=== PATIENT | female | born 1975 | race Caucasian/White ===

== ENCOUNTER 2017-06-29 15:56 | Emergency (ER) | payer OTHER, SELFPAY ==
[2017-06-29 15:56] VITALS: BP 125/80; PULSE 79; RESP 17; TEMP 36.8; O2SAT 95; BMI 26.6
--- NOTE | 2017-06-29 16:11 | CT_ITS ---
STUDY: CT ABDOMEN AND PELVIS WITHOUT CONTRAST REASON FOR EXAM: Female, 41 years old. Left flank pain. History of tubal ligation. RADIATION DOSAGE (If Supplied By Facility): CTDIvol = ( 6.76 ) mGy, DLP = ( 322.64 ) mGycm TECHNIQUE: Transaxial images were obtained from the dome of the diaphragm to the symphysis pubis without oral contrast, and without intravenous contrast. Sagittal and coronal images were reconstructed. Individualized dose optimization techniques were used for this CT. COMPARISON: August 06, 2007 FINDINGS: The visualized lung bases are unremarkable. The visualized portions of the heart are within normal limits. Normal liver. Normal gallbladder and extrahepatic biliary system. Normal spleen. Normal pancreas. There is stable prominence of the left adrenal gland. Normal right kidney. Normal left kidney. Normal visualized stomach. Normal small intestine. There is a moderate amount of stool throughout the colon. The appendix is visualized and appears normal. Normal abdominal aorta. Normal inferior vena cava. Normal retroperitoneum. Normal urinary bladder. There are surgical clips within the pelvis left of midline and system with prior tubal ligation. Normal abdominal wall. Normal osseous structures. CT/Abdomen/Pelvis without Cont IMPRESSION: Moderate amount of stool throughout the colon. No hydroureteronephrosis. Electronically Signed: Gabrielle Francis MD at 17:06 EDT Tel , Service support ,
[2017-06-29] MEDS: Morphine 4 MG/ML Syringe IV (16:15)
[2017-06-29] MEDS: Ketorolac 30 MG/ML Syringe IV (16:15)
[2017-06-29] MEDS: Ondansetron 4 MG/2 ML Vial IV (16:16)
--- NOTE | 2017-06-29 16:17 | ED.DCSUM_ITS ---
- ER Visit Summary Date of Service: 06/29/17 Chief Complaint: Abdominal pain History of Present Illness: The patient is a 41 F with severe left pelvic pain that radiates to her left low back. Pain is colicky, started suddenly about 5 hours prior to arrival but was relatively mild, with quick gradual worsening. She has never had this before, but states that the quality is somewhat like the ovarian discomfort that she experiences for the latter half of every menstrual cycle. She is currently on her cycle, it started 2 days ago and is otherwise not unusual. She denies any urinary trouble or hematuria since this pain started. She has been nauseated but is not vomiting. Physical Examination: Vital signs are normal, she is in acute severe painful distress. She is a little agitated due to this but is cooperative. Palpating the area that is painful is nontender and does not worsen her pain. She does not have true CVA tenderness, she points to an area lower in her left back to which the pain radiates. Her abdomen is nondistended. There is no bony pelvic tenderness. There are no rashes. The rest of her exam is unremarkable. Test Results: negative. Urine shows only a couple red blood cells and 0-5 white blood cells, with trace amount of blood, trace leukocyte esterase. The rest of her labs are unremarkable with only a very mild leukocytosis. Emergency Department Course and Treatment: Given that patient was in immense pain that is focal, radiating to the left low back and without any tenderness that worsened her pain, although the differential diagnosis includes ovarian torsion, it also includes a ureteral stone, and ultrasound is not readily available because it is Friday and CT is. Therefore she was sent to CT, and the results returned relatively quickly showing no acute abnormality, after which I immediately discussed with gynecology absorption and adsorption engineer Dr. Arambula. She stated that giving the timing of the patient's presentation and onset of symptoms, if torsion is suspected, awaiting results of an ultrasound would be reasonable prior to further evaluation. Therefore, she was sent for transvaginal ultrasound of the pelvis. This shows no ovarian enlargement or abnormal blood flow, no cysts, no free fluid. There are some nabothian cysts, which the patient states she has been told about in the past, and signs of possible adenomyosis. None of this explains her discomfort. On reevaluation, she is sitting comfortably and states that the pain is gone. She states it went away gradually, just prior to going to ultrasound. Given the normal CT, I do not think she had ureterolithiasis, even if she had just passed a stone. I discussed again with Dr. Arambula, who agrees that she is safe to discharge home and have follow-up. She recommends taking Motrin 600 mg every 6 hours 48 hours before her next cycle. Treatment Plan: Outpatient gynecologic follow-up Disposition: Discharge home Impression: Pelvic pain in female This note was generated with Number 100 dictation software. It may contain incorrect words, spelling, and punctuation that were not noted in review of the chart prior to signing ED Disposition - Plan for ED Patient: Disposition: Home or Assisted Living Chief Complaint: Abd Pain Instructions: ED Pelvic Pain [facility] Referrals: Silverio Chang MD [STAFF PHYSICIAN] - Imelda Mathis MD [STAFF PHYSICIAN] - Additional Instructions: Dr. Arambula recommends Motrin 600 mg every 6 hours starting 48 hours before your next cycle. You are welcome to follow-up with her, or to continue with Dr. Chang.
[2017-06-29 16:33] LABS: Absolute Lymphocyte Count 1.46 X10^3/ul (0.83-4.51); Absolute Neutrophil Count 10.1 X10^3/uL (2.0-7.7); Basophil# 0.03 X10^3/uL; Basophil% 0.2 % (0-1); Eosinophil# 0.09 X10^3/uL; Eosinophils% 0.7 % (0-5); Hematocrit 42.6 % (37-47); Hemoglobin 14.4 g/dl (12.0-15.0); Lymphocyte # 1.46 X10^3/ul (4.0); Lymphocyte % 11.7 % (19-41); Mean Corp Hgb Conc 33.8 g/gl (32-36); Mean Corpuscular Hgb 31.1 pg (27.0-32.0); Mean Platelet Vol. 9.7 fl (6.2-12.0); Monocyte# 0.81 X10^3/uL; Monocyte% 6.5 % (0-10); Neutrophil # 10.13 X10^3/uL (2.7-7.7); Neutrophil % 80.8 % (47-70); Platelet Count 244 K/mm3 (150-450); RBC Distribution Width CV 13.2 % (11.6-14.6); RBC Distribution Width SD 43.5 fl (35.1-43.9); Red Blood Count 4.63 M/mm3 (4.2-5.4); White Blood Count 12.5 K/mm3 (4.4-11.0)
[2017-06-29] MEDS: HYDROmorphone 1 MG/ML Syringe IV (16:35)
[2017-06-29 16:36] LABS: POSITIVE COUNT NO; POSITIVE DIFFERENTIAL NO; POSITIVE MORPHOLOGY NO
[2017-06-29 16:47] LABS: Anion Gap 8 (5-15); BUN 12 mg/dL (7-18); BUN/Creat Ratio 15.3 RATIO (10-20); Calcium,Total 9.4 mg/dL (8.5-10.1); Chloride 109 mmol/L (98-107); Creatinine, Serum 0.78 mg/dL (0.55-1.02); EST Glomerular Filtration Rate 86 mL/min (>60); Est Glom Filt Rate - Afr Amer 105 mL/min (>60); Estimated Creatinine Clearance 82.79 ml/min; Glucose 95 mg/dL (74-106); Potassium 4.3 mmol/L (3.5-5.1); Sodium Level 138 mmol/L (136-145)
[2017-06-29 17:36] LABS: Bacteria 0 SEEN /hpf (None Seen); Mucous, Urine 0 SEEN /hpf (<or=2+); Squamous Epithelial Cells - UA 0 SEEN /hpf (5-10)
[2017-06-29 17:42] LABS: Color, Urine Yellow (Yellow); Glucose, Dipstick Normal (Normal); Ketone-Dipstick 5 mg/dl (Negative); Leukocyte Esterase-Dipstick 25 /ul (Negative); Nitrite-Dipstick Negative (Negative); Occult Blood-Urine 150 /ul (Negative); Protein-Dipstick 30 mg/dl (Negative); Urine Clarity Sl. Cloudy (Clear); Urine Urobilinogen 4 mg/dl (Normal)
[2017-06-29 17:55] LABS: Amorphous Sediment 2+; Calcium Oxalate Crystals Ur RARE /hpf (<or=2+); Red Blood Cells-Urine 5-10 SEEN /hpf (0-5); Urine Bilirubin Dipstick 3 mg/dL (Negative); White Blood Cells 0-5 SEEN /hpf (0-5)
[2017-06-29 17:56] LABS: Uric Acid Crystals Ur 1+ /hpf (<or=1+)
--- NOTE | 2017-06-29 17:57 | US_ITS ---
STUDY: ULTRASOUND TRANSVAGINAL CLINICAL: Female, 41 years old. Pelvic pain. TECHNIQUE: Transvaginal COMPARISON: None. FINDINGS: Normal uterine size measuring 7.8 cm in maximal craniocaudal dimension. The myometrium is heterogenous. There are no myometrial masses. Normal endometrial thickness measuring 6.0 mm and is hyperechoic. There are nabothian cysts present. Normal uterine cervix. Normal right ovary, measuring 2.2 x 1.7 x 1.5 cm. There are multiple follicles without a dominant cyst. Normal left ovary, measuring 2.3 x 2.1 x 1.8 cm. There are multiple follicles without a dominant cyst. There is no free fluid in the pelvis. Polycystic ovary disease: No. US/Transvaginal Non- IMPRESSION: No sonographic evidence of ovarian torsion. Heterogenous myometrium may reflect underlying adenomyosis. Electronically Signed: Gabrielle Francis MD at 19:32 EDT Tel , Service support ,
[2017-06-29] MEDS: proMETHazine 25 MG/ML Syringe 6.25 MG IV (18:03)
[2017-06-29 18:39] VITALS: BP 99/54; PULSE 64; RESP 16; O2SAT 99
[2017-06-29 19:07] LABS: Pregnancy, Serum, hCG Quali. NEGATIVE Negative (0-9 Nonpreg)
[2017-06-29 20:27] VITALS: BP 97/53; PULSE 60; RESP 14; O2SAT 98
== END 2017-06-29 20:29 | disposition home or self-care (01) ==
PROVIDERS: Emergency Provider Emergency Medicine; Family Provider Physician Assistant; PCP Physician Assistant
DX: R10.2 Pelvic and perineal pain (principal); N88.8 Other specified noninflammatory disorders of cervix uteri; R45.1 Restlessness and agitation; R11.0 Nausea; M54.9 Dorsalgia, unspecified; Z79.899 Other long term (current) drug therapy
CPT/HCPCS: 74176; 76830; 80048; 81001; 84703; 85025; 93976; 96374; 96375; 99285; J7030; A4216; J2405

== ENCOUNTER → 2018-06-29 17:09 | Outpatient (CLI) | payer OTHER, SELFPAY ==
[2018-06-29 17:52] LABS: D-Dimer Quantitative (DVT/PE) 0.41 FEU/ug/m (0.27-0.49)
== END ==
PROVIDERS: Family Provider Physician Assistant; PCP Physician Assistant; Referring Provider Family Medicine; Visit Provider Family Medicine
DX: R07.9 Chest pain, unspecified (principal)
CPT/HCPCS: 85379

== ENCOUNTER → 2019-07-28 16:10 | Outpatient (CLI) | payer OTHER, SELFPAY ==
[2019-07-28 16:27] LABS: D-Dimer Quantitative (DVT/PE) 0.31 FEU/ug/m (0.27-0.49)
== END ==
PROVIDERS: PCP Physician Assistant; Referring Provider Family Medicine; Visit Provider Family Medicine
DX: R06.02 Shortness of breath (principal); R00.0 Tachycardia, unspecified
CPT/HCPCS: 85379

== ENCOUNTER 2021-06-24 17:02 | Emergency (ER) | payer BC, MEDICAID, SELFPAY ==
[2021-06-24 17:03] VITALS: BP 134/85; PULSE 83; RESP 18; TEMP 36.1; O2SAT 99; BMI 33.0
--- NOTE | 2021-06-24 17:16 | EKG12_ITS ---
Test Reason : Blood Pressure : / mmHG Vent. Rate : 084 BPM Atrial Rate : 084 BPM P-R Int : 154 ms QRS Dur : 084 ms QT Int : 376 ms P-R-T Axes : 052 063 045 degrees QTc Int : 444 ms Normal sinus rhythm Normal ECG Confirmed by SAVANA MCCANN, RITESH ([id number]), news videotape editor CARLOS MANUEL CANALES ([id number]) on 06/26/2021 10:39:13 AM Referred By: TREVOR Confirmed By:RITESH SAWANT MD
--- NOTE | 2021-06-24 17:17 | EDS_ITS ---
HPI History of Present Illness Chief Complaint: Chest Pain Detail of Chief Complaint: Chest pain that started about an hour ago Informant: patient Onset/Context/Timing Current Severity: 08/07 Narrative Narrative: Patient presents to the emergency department complaint of chest pain that started about an hour ago. Patient states that she was at [employer] eating when the pain started. She had just drank some water when she developed this pain in her left chest that radiated through to her back and down her left arm and went into her neck. states that she was breathing heavy. P atient denied feeling lightheaded or dizzy. She had no nausea or vomiting. She has had similar pain in the past but no etiology was found. This is the most severe its been however. Patient denies recent travel or surgery. She has never had a blood clot in her leg or lung. She has no heart history otherwise. No family history of heart disease. Prior Similar Symptoms: Yes CVD Risk Factors: Positive for Hypercholesterolemia PFSH PFSH Home Medications cholecalciferol (vitamin D3) [Vitamin D3] 2,000 unit PO DAILY 03/17/13 [History Last Taken 01/25/17] diclofenac sodium 75 mg PO DAILY 06/29/17 [History Last Taken Unknown] Allergy/AdvReac Type Severity Reaction Status Date / Time Gadolinium-MRI Contrast Allergy Unknown Verified 06/24/21 17:05 Medium Social History Smoking Status: Former smoker ROS ROS ED Review of Systems ROS Unobtainable: other Constitutional Constitutional ED: Reports lethargy; Denies chills, fever(s), sweats or weight loss Eyes Eyes: Denies blurry vision, change in vision or diplopia ENT ENT ED: Denies rhinorrhea or sore throat Cardiovascular Cardiovascular: Reports chest pain; Denies orthopnea Respiratory/Chest Respiratory/Chest: Reports dyspnea and dyspnea on exertion; Denies cough, orthopnea or sputum Gastrointestinal Gastrointestinal: Denies abdominal pain, diarrhea, nausea or vomiting Genitourinary Genitourinary ED: Denies dysuria, hematuria or urinary frequency Musculoskeletal Musculoskeletal: Denies arthralgias, back pain, myalgias or neck pain Integumentary Denies abscess, Abrasions or rash Neurologic Neurologic: Denies headache(s) or weakness Psychiatric Psychiatric: Denies anxiety, depression or suicidal thoughts Endocrine Endocrinology: Denies polydipsia, polyphagia or polyuria Hematologic/Lymphatic Hematologic/Lymphatic: Denies easy bleeding, easy bruising or lymphadenopathy Allergic/Immunologic Allergic/Immunologic ED: Denies mouth swelling, tongue swelling or urticaria EXAM Physical Exam Const Vital Signs: 06/24/21 17:03 06/24/21 17:22 06/24/21 18:02 Temperature 97.0 F L Temperature Source Temporal Pulse Rate 83 72 Respiratory Rate 18 15 Blood Pressure 134/85 H 112/68 Blood Pressure Mean 101 82 Pulse Ox 99 99 97 Oxygen Delivery Method Room Air Room Air Room Air 06/24/21 19:00 Temperature Temperature Source Pulse Rate 74 Respiratory Rate 15 Blood Pressure 120/60 Blood Pressure Mean 80 Pulse Ox 99 Oxygen Delivery Method Positive well nourished and well developed General Appearance ED: well developed and NAD HEENT Reports TM's clear and moist mucous membranes normocephalic and atraumatic; Negative for trauma or tenderness Tympanic Membrane ED: Yes TM's clear Eyes PERRL and EOMs intact bilaterally General Eye ED: Negative for pale conjunctiva or scleral icterus Neck no lymphadenopathy, supple and no JVD General: Negative for tenderness Chest Wall inspection of chest normal and palpation of chest normal Chest: Negative for tenderness Resp normal respiratory effort and clear to auscultation bilaterally Effort and Inspection: Negative for respiratory distress or pain with movement Auscultation: Negative for rhonchi, wheezes or diminished lung sounds Cardio regular rate, regular rhythm, S1 normal heart sound, S2 normal heart sound and no murmurs Peripheral Pulses: pulses 2+ throughout GI normal to inspection, nondistended, normoactive bowel sounds, soft to palpation, non-tender, non-distended and no masses Back/Spine no CVA tenderness and no thoracic nor lumbar tenderness Extremity normal to inspection General Extremety ED: Negative for edema General Extremity: Negative for edema Neuro oriented x3, CN's II-XII intact bilaterally, no sensory deficits noted and gait normal Sensorium / Orientation: awake, alert, oriented to person, oriented to place and oriented to time Motor Exam: strength 5/5 throughout and strength abnormal Psych mental status grossly normal Skin no rashes or lesions noted and no wounds Heart Score History: Moderately Suspicious ECG: Normal Age: </= 45 years Risk Factors: 1 or 2 Risk Factors Troponin: </= Normal Limit Score: 2 MDM MDM MDM Narrative Medical decision making narrative: IV line established on arrival. Patient was given aspirin. She refused nitroglycerin. Patient had a normal initial tro ponin as well as chemistries. Given that she had only had a pain for an hour prior to come in and I did repeat a delta troponin which also was negative. Her pain is now mostly resolved. At this point I feel she is low risk with a heart score of 2. Suspect possibly esophageal spasm. Patient advised to follow-up with her primary care physician 3 to 5 days. Patient to return if worsening pain, increasing shortness of breath, or condition worsen anyway. Lab Data Attestation: I reviewed the patient's lab results. Labs: Laboratory Results - last 24 hr 06/24/21 06/24/21 06/24/21 17:20 17:20 19:20 WBC 7.6 RBC 4.32 Hgb 13.2 Hct 38.7 MCV 89.6 MCH 30.6 MCHC 34.1 RDW Std Deviation 42.1 RDW Coeff of Aman 12.9 Plt Count 205 MPV 8.7 Immature Gran % (Auto) 0.300 Neut % (Auto) 67.2 Lymph % (Auto) 23.7 [place] % (Auto) 7.1 Eos % (Auto) 1.2 Baso % (Auto) 0.5 Absolute Neuts (auto) 5.1 Absolute Lymphs (auto) 1.81 Nucleated RBC % 0 Sodium 138 Potassium 3.5 Chloride 106 Carbon Dioxide 26.0 Anion Gap 6 BUN 18 Creatinine 0.78 Estim Creat Clear Calc 79.48 Est GFR (MDRD) Af Amer 103 Est GFR (MDRD) Non-Af 85 BUN/Creatinine Ratio 23.2 H Glucose 117 H Calcium 9.3 Troponin I High Sens < 3 L < 3 L Radiography Chest X-Ray - ED: 1 View Diagnostic Testing: Clinical Impression(s) from Imaging Studies Chest X-Ray 06/24/21 17:30 IMPRESSION: Normal x-ray examination of the chest. Electronically Signed: Maryann Pham MD at 20:08 EDT Reading Location ID and State: [id number] / Tel , Service support , 1 view chest ray obtained interpreted by myself as no acute disease process. Radiology in agreement. EKG Initial EKG: Attestation: I personally reviewed and interpreted this EKG as follows: Comments: Sinus rhythm with a ventricular rate of 84 bpm with no acute ST segment changes Discharge Plan Triage Chief Complaint: Chest Pain ED Provider: Parish De La Rosa Dx/Rx/DC Orders Clinical Impression: Chest pain Instructions: ED Chest Pain, Uncertain Cause Prescriptions: No Action cholecalciferol (vitamin D3) [Vitamin D3] 2,000 UNIT capsule 2,000 unit PO DAILY RF: 0 diclofenac sodium 75 MG tablet 75 mg PO DAILY RF: 0 Primary Care Provider: Derrick Perez Referrals: Derrick Perez MD [Primary Care Provider] - 3-5 Days Disposition Disposition: Home, Self Care
[2021-06-24 17:22] VITALS: O2SAT 99
[2021-06-24 17:28] LABS: Absolute Lymphocyte Count 1.81 X10^3/uL (0.83-4.51); Absolute Neutrophil Count 5.1 X10^3/uL (2.0-7.7); Basophil# 0.04 X10^3/uL; Basophil% 0.5 % (0-1); Eosinophil# 0.09 X10^3/uL; Eosinophils% 1.2 % (0-5); Hematocrit 38.7 % (37-47); Hemoglobin 13.2 g/dL (12.0-15.0); Lymphocyte # 1.81 X10^3/ul (0.83-4.51); Lymphocyte % 23.7 % (19-41); Mean Corp Hgb Conc 34.1 g/dL (32-36); Mean Corpuscular Hgb 30.6 pg (27.0-32.0); Mean Corpuscular Volume 89.6 fL (81-99); Mean Platelet Vol. 8.7 fl (6.2-12.0); Monocyte# 0.54 X10^3/uL; Monocyte% 7.1 % (0-10); NRBC Flagged by Analyzer 0 % (0-5); Neutrophil # 5.13 X10^3/uL (2.7-7.7); Neutrophil % 67.2 % (47-70); Platelet Count 205 K/mm3 (150-450); RBC Distribution Width CV 12.9 % (11.6-14.6); RBC Distribution Width SD 42.1 fl (35.1-43.9); Red Blood Count 4.32 M/mm3 (4.2-5.4); White Blood Count 7.6 K/mm3 (4.4-11.0)
[2021-06-24] MEDS: 0.9% Normal Saline 1,000 ML 150 ML IV (17:30)
[2021-06-24] MEDS: Aspirin 81 MG TAB.CHEW 324 MG PO (17:30)
--- NOTE | 2021-06-24 17:30 | RAD_ITS ---
STUDY: X-RAY CHEST REASON FOR EXAM: Female, 45 years old. chest pain TECHNIQUE: Single AP portable view of the chest. COMPARISON: 01/22/2015. FINDINGS: The lungs are clear and expanded. There is no demonstrated pleural abnormality. Normal size heart. Normal mediastinum and bob. Normal visualized pulmonary arteries. Normal visualized aortic arch and descending thoracic aorta. Normal visualized thoracic spine. Normal visualized ribs, clavicles, and shoulders. There is no demonstrated abnormality of the visualized soft tissue structures of the upper abdomen. RAD/Chest 1 View (Portable) IMPRESSION: Normal x-ray examination of the chest. Electronically Signed: Maryann Pham MD at 20:08 EDT Reading Location ID and State: [id number] / Tel , Service support ,
--- NOTE | 2021-06-24 17:32 | ED.RN ---
Pt refusing nitro at this time d/t hx of migraines. Dr. De La Rosa aware.
[2021-06-24 17:45] LABS: Anion Gap 6 (5-15); BUN 18 mg/dL (7-18); BUN/Creat Ratio 23.2 RATIO (10-20); Calcium,Total 9.3 mg/dL (8.5-10.1); Chloride 106 mmol/L (98-107); Creatinine, Serum 0.78 mg/dL (0.55-1.02); EST Glomerular Filtration Rate 85 mL/min (>60); Est Glom Filt Rate - Afr Amer 103 mL/min (>60); Estimated Creatinine Clearance 79.48 ml/min; Glucose 117 mg/dL (74-106); Potassium 3.5 mmol/L (3.5-5.1); Sodium Level 138 mmol/L (136-145); Troponin-I HS < 3 pg/mL (3.0-54.0)
[2021-06-24 18:02] VITALS: BP 112/68; PULSE 72; RESP 15; O2SAT 97
[2021-06-24 19:00] VITALS: BP 120/60; PULSE 74; RESP 15; O2SAT 99
[2021-06-24 20:43] LABS: Troponin-I HS < 3 pg/mL (3.0-54.0)
[2021-06-24 21:00] VITALS: BP 127/79; PULSE 63; PULSE 68; RESP 16; O2SAT 98
== END 2021-06-24 21:03 | disposition home or self-care (01) ==
PROVIDERS: Emergency Provider Emergency Medicine; PCP Family Medicine; Visit Provider Emergency Medicine
DX: R07.9 Chest pain, unspecified (principal); E78.00 Pure hypercholesterolemia, unspecified; Z79.899 Other long term (current) drug therapy; Z87.891 Personal history of nicotine dependence
CPT/HCPCS: 71045; 80048; 84484; 85025; 93005; 96360; 96361; 99285; J7030; A4216

== ENCOUNTER 2021-09-01 21:12 | Emergency (ER) | payer BC, MEDICAID, SELFPAY ==
[2021-09-01 21:13] VITALS: BP 152/42; PULSE 104; RESP 15; TEMP 37.2; O2SAT 96; BMI 31.9
[2021-09-01] MEDS: HYDROmorphone 1 MG/ML Syringe IM (21:39)
[2021-09-01] MEDS: diazePAM 5 MG Tablet PO (21:39)
--- NOTE | 2021-09-01 21:40 | EDS_ITS ---
HPI History of Present Illness Chief Complaint: Lower Extremity Injury Narrative Narrative: Patient presents with right calf pain after running, she tells me she heard a snap. She has quite a bit of calf pain. No fall no other injury. [facility] Medical History no medical history Home Medications tizanidine 4 mg PO TID #14 tab 09/01/21 [Rx Last Taken Unknown] Allergy/AdvReac Type Severity Reaction Status Date / Time Gadolinium-MRI Contrast Allergy Unknown Verified 09/01/21 21:17 Medium Social History Smoking Status: Former smoker ROS ROS ED ROS Narrative Physical exam General: Patient does not appear in significant distress . Head: Normocephalic, Atraumatic Neck: No C-spine tenderness Cardiovascular: Normal distal pulses Back: Nontender, Normal Inspection. Extremities: Calf pain as in HPI Skin: No abrasions, no lacerations Neurological: Normal strength and sensation EXAM Physical Exam Narrative Exam Narrative: Physical exam General: Patient appears uncomfortable Head: Normocephalic, Atraumatic Neck: No C-spine tenderness Cardiovascular: Normal distal pulses Back: Nontender, Normal Inspection. Extremities: There is tenderness in the right calf region. I can see the Achilles tendon and it is intact. Barlow test is also negative. Otherwise she has normal strength and sensation although slightly limited by pain. No bony tenderness. No knee or ankle pain. Skin: No abrasions, no lacerations Neurological: Normal strength and sensation Const Vital Signs: 09/01/21 21:13 Temperature 98.9 F Temperature Source Temporal Pulse Rate 104 H Respiratory Rate 15 Blood Pressure 152/42 H Blood Pressure Mean 78 Pulse Ox 96 Oxygen Delivery Method Room Air MDM MDM MDM Narrative Medical decision making narrative: At this time there is no evidence of Achilles tendon rupture. She has a calf strain. I will give her analgesia and discharged in stable condition Discharge Plan Triage Chief Complaint: Lower Extremity Injury ED Provider: Siddhartha Laboy Dx/Rx/DC Orders Clinical Impression: Strain of calf muscle, Calf pain Instructions: Gastrocnemius Muscle Tear, ED Muscle Strain, Extremity Prescriptions: New tizanidine 4 mg tablet 4 mg PO TID Qty: 14 RF: 0 Primary Care Provider: Derrick Perez Referrals: Ebenezer Keating DO [STAFF PHYSICIAN] - 2 Days Derrick Perez MD [Primary Care Provider] - Disposition Disposition: Home, Self Care
== END 2021-09-01 23:05 | disposition home or self-care (01) ==
PROVIDERS: Emergency Provider Emergency Medicine; PCP Family Medicine; Visit Provider Emergency Medicine
DX: S86.119A Strain of other muscle(s) and tendon(s) of posterior muscle group at lower leg level, unspecified leg, initial encounter (principal); M79.661 Pain in right lower leg; X58.XXXA Exposure to other specified factors, initial encounter; Y93.02 Activity, running; Z87.891 Personal history of nicotine dependence
CPT/HCPCS: 96372; 99282

== ENCOUNTER 2022-04-11 08:52 | Day surgery (SDC) | payer BC, SELFPAY ==
--- NOTE | 2022-04-09 16:51 | PCM.HP.BLA ---
History and Physical Date of Admission: 04/11/22 Pre-Op History and Physical ? HPI: The patient is a 46 year old female presenting for discussion regarding surgical intervention for abnormal uterine bleeding and endometrial polyp. Patient would like to proceed with surgical intervention at this time. Patient understands that if abnormal endometrial cells are found at the time of the procedure and the ablation is performed that she may need a hysterectomy at a later date. She is declining endometrial biopsy in the office at this time. ? Pre-operative visit. She is scheduled for Hysteroscopy D&C and polypectomy with symphion and laisha endometrial ablation, for AUB, endometrial polyp on 04/11/22. Procedure discussed along with risks, benefits and complications. Other alternatives discussed for management. Consent form signed? Yes. ? ? PAST MEDICAL HISTORY PAST MEDICAL HISTORY Diagnosis Date ? Agoraphobia with panic disorder ? ? Anxiety disorder ? ? Arthritis ? ? Chronic depressive personality disorder ? ? Fibroadenosis of breast ? ? Hiatal hernia ? ? History of cold sores ? ? Hyperlipidemia ? ? borderline ? Neurological signs 01/2013 ? was in hospital for possible stroke or neurolical headache- never confirmed which ? Tobacco use disorder ? ? ? PAST SURGICAL HISTORY PAST SURGICAL HISTORY Procedure Laterality Date ? ABDOMINAL SURGERY HX ? ? ? ARTHROSCOPY, SHOULDER, SURGI ? 2018, 2019 ? DELIVERY ONLY ? ? ? , low cervical ? COLONOSCOPY FLX DX W/COLLJ SPEC WHEN PFRMD ? 09/22/2020 ? ESOPHAGOGASTRODUODENOSCOPY TRANSORAL DIAGNOSTIC ? 09/22/2020 ? LIG/TRNSXJ FLP TUBE ABDL/VAG APPR UNI/BI ? 2003 ? Tubal ligation ? TOOTH EXTRACTION ? 2002 ? ? ? CURRENT MEDICATIONS Current Outpatient Medications Medication Sig Dispense Refill ? norethindrone (AYGESTIN) 5 mg tablet Take 1 tablet TID until bleeding stops, the BID x 3 days, the daily x 3 days. 35 tablet 0 ? loratadine 10 mg cap Take 10 mg by mouth once daily. ? ? ? Magnesium 250 mg tab Take 500 mg by mouth once daily. ? ? ? Cholecalciferol, Vitamin D3, 25 mcg (1,000 unit) cap Take 2 capsules by mouth once daily. 60 capsule 5 ? MULTIVITAMIN (VITAMIN DAILY ORAL) Take 1 tablet by mouth once daily. ? ? ? ascorbic acid (VITAMIN C) 250 mg tablet Take 250 mg by mouth once daily. ? ? ? No current facility-administered medications for this visit. ? ? ALLERGIES: Bee Venom Protein (Honey Bee), Control [Other], Contrast Dye [Iodine], Effexor [Venlafaxine Analogues], Lexapro [Escitalopram Oxalate], Nut - Unspecified, Seasonal Allergies, Tree Nuts, and Zoloft [Sertraline] ? PERSONAL HISTORY: SOCIAL HISTORY Social History ? Tobacco Use ? Smoking status: Former ? ? Packs/day: 0.50 ? ? Years: 24.00 ? ? Pack years: 12.00 ? ? Types: Cigarettes ? ? Quit date: 04/09/2020 ? ? Years since quittin.9 ? Smokeless tobacco: Never ? Tobacco comments: ? ? started smoking at 11yo Vaping Use ? Vaping Use: Never used Substance Use Topics ? Alcohol use: Yes ? ? Comment: very rarely ? Drug use: No ? FAMILY HISTORY: FAMILY HISTORY FAMILY HISTORY Problem Relation Age of Onset ? other (autoimmune) Mother ? ? other (meningioma) Mother ? ? other (mvp) Mother ? ? other (endometriosis) Mother ? ? other (brain tumor) Mother ? ? Seizures Sister ? ? twin ? ? REVIEW OF SYMPTOMS: negative except as noted above PHYSICAL EXAMINATION: ? VITALS: Blood pressure 120/78, weight 194 lb (88 kg), last menstrual period 03/24/2022. ? GENERAL: The patient is well nourished, well hydrated in no acute distress. , The patient is oriented to time, place, and person. NECK: full range of motion ? ? IMPRESSION: AUB, endometrial polyp on ultrasound ? PLAN: Hysteroscopy, dilation and curettage, polypectomy with symphion and Laisha endometrial ablation ? Pt has been counseled on risks/benefits and alternatives of surgery including but not limited to anesthesia, bleeding, infection, uterine perforation with subsequent injury to pelvic structures including bowel, bladder, ureters and vessels. Pt wishes to proceed with surgery at this time. Reviewed possible thermogenic injury to bladder/bowel. ? Pre and post op instructions reviewed ? I have reviewed and updated past medical and surgical history, medications and allergies Imelda Arambula MD ?4:54 PM Office Visit on 03/27/2022 Office Visit on 03/27/2022 Note viewed by patient
[2022-04-11] VITALS (10 sets, daily range): BP systolic 79–130; BP diastolic 43–88; PULSE 68–79; RESP 16–18; TEMP 36.3–36.6; O2SAT 98–100; BMI 33.3
--- NOTE | 2022-04-11 | EMB_PTH ---
PATIENT: LULU SHAH [place] [facility] [place][id number] AGE/SX: 46/F ROOM: RE04/11/[address]: Dr. Imelda Mathis, MDDOB: 1975 BED: DIS: 04/11/2022 SPEC #: [id number] RECD: 04/11/22 12:33 STATUS: FREDERICK RETeena #: [id number] FANNY: 04/11/22 00:[address]: Imelda Mathis DEPT: SURGICAL PATHOLOGY RECD BY: Shane You ENTERED: 04/11/22 12:33 SP TYPE: ENDOM BX/C OTHR DR: Dr. Derrick Perez MD Tissues: Endometrium, NOS Procedures: Surgery Specimen Level IV HEADER OPERATION: Hysteroscopy, D & C Symphion, polypectomy, endometrial ablation PRE-OP DIAGNOSIS: Abnormal uterine bleeding, endometrial polyp TISSUE SUBMITTED: Endometrial polyp and endometrial curettings MICROSCOPIC DIAGNOSIS Endometrial polyp and curettings: Secretory endometrium. SJ:delfino 04/12/2022 MICROSCOPIC DESCRIPTION Slides are reviewed. GROSS DESCRIPTION Received in fixative is one container labeled with the patient's name and designated endometrial polyp and curettings. The specimen consists of multiple irregular fragments of pink-quintero soft tissue that in aggregate measure 5 x 4 x 0.2 cm. The specimen is totally submitted in two cassettes. / AM:delfino 04/11/2022 TC:4 CPT: 69280
[2022-04-11 09:19] LABS: Internal QC Validated? YES +Cl - CLEAR BKGD; Pregnancy, Urine Negative Negative
[2022-04-11 09:32] LABS: Hematocrit 38.3 % (37-47); Hemoglobin 12.7 g/dL (12.0-15.0); Mean Corp Hgb Conc 33.2 g/dL (32-36); Mean Corpuscular Hgb 29.9 pg (27.0-32.0); Mean Corpuscular Volume 90.1 fL (81-99); Mean Platelet Vol. 8.8 fl (6.2-12.0); Platelet Count 227 K/mm3 (150-450); RBC Distribution Width CV 13.2 % (11.6-14.6); RBC Distribution Width SD 43.1 fl (35.1-43.9); Red Blood Count 4.25 M/mm3 (4.2-5.4); White Blood Count 6.8 K/mm3 (4.4-11.0)
[2022-04-11] MEDS: Lactated Ringers 1,000 ML 15 ML IV (09:32)
--- NOTE | 2022-04-11 10:29 | PCM.OPRPT ---
Report of Operation Date of Procedure: 04/11/22 Pre-Operative Diagnosis: AUB, endometrial polyp Post-Operative Diagnosis: same Surgery/Procedure Performed:: Hysteroscopy, D&C, Polypectomy with symphion, Endometrial Ablation with Laisha Description of Surgical Findings:: uterus sounded to 10cm, endocervical canal 4cm. Endometrial polyp noted on anterior aspect of uterus. Surgeon: Franki-Ralf,Imelda physical science technician: None Type of Anesthesia: MAC Specimen's removed: endometrial curettings and endometrial polyp Drains: none Estimated Blood Loss (mL): <5cc Fluids Replaced: 700 Description of Procedure: Informed consent was obtained the patient was taken the operating room she was placed in supine position. She was given anesthesia. She was then placed in the [facility] where she was prepped and draped in the normal sterile fashion. At this time the weighted speculum was placed in the posterior fornix of vagina. Single-tooth tenaculum was used to gently grasp the anterior lip the cervix. At this time the uterine cavity was sounded to approximately 10 cm. endocervical canal 6cm. Gentle dilatation was performed once adequate dilatation of the cervix was achieved the hysteroscope using normal saline as a distention medium was placed. endometrial polyp noted- Symphion resecting device used to obtain endometrial curettings and to perform polypectomy. Tissue will be sent to pathology for evaluation. Laisha device opened- set to cavity size 6cm. Cervical seal appreciated and passed uterine cavity integrity test. Device cycled for 120seconds without complication. procedure complete. Tenaculum removed. Good hemostasis. Instrument, lap count correct x 2. Vaginal Sweep was negative. Grafts/Implants Used: none Procedure Start Time: 10:05 Procedure Stop Time: 10:28 Complications none Admit VTE Documentation VTE Present on Admission: Yes VTE Mechan Device Prophylaxis: SCD's VTE Pharm Prophylaxis ordered?: No
--- NOTE | 2022-04-11 10:36 | DCINST_ITS ---
Discharge Instructions Procedure D&C Diet Discharge Diet: No restrictions Activity May resume sexual activity in: 1 week Dressing / Incision Call your doctor if you observe: Fever of 101 or Higher, Inability to urinate, Using more than 1 pad per hour and Uncontrolled pain Follow Up Care Please Follow Up With: Imelda Mathis MD When: 1-2 weeks post OP if you need an appointment please call [phone] Test Results: Test results from this visit will be discussed in further detail at your follow- up appointment, if applicable. Discharge Plan Admission Attending Provider: Imelda Mathis Primary Care Provider: Derrick Perez Discharge Orders/Prescriptions Prescriptions: No Action NyQuil 7.5-60-30-1,000 mg/30 mL Liquid 30 ml PO PRN PRN (Reason: Sleep) multivitamin Capsule 1 cap PO DAILY cholecalciferol (vitamin D3) [Vitamin D3] 25 mcg (1,000 unit) Capsule 25 mcg PO DAILY Referrals / Follow Up: Derrick Perez MD [Primary Care Provider] - Disposition Discharge Orders: Discharge Patient (Routine); Ordered 04/11/22 Ordered By: Dr. Imelda Mathis
[2022-04-11] MEDS: HYDROcodone Bitartrate/Apap 5/325 Tablet PO (12:00)
== END 2022-04-11 12:42 | disposition home or self-care (01) ==
LOC: SDC 08:56 → AC 08:57
PROVIDERS: PCP Family Medicine; Referring Provider Obstetrics & Gynecology; Visit Provider Obstetrics & Gynecology
PROC: 0UB98ZZ Excision of Uterus, Via Natural or Artificial Opening Endoscopic (ICD-10-PCS; CPT 58558; principal; 2022-04-11 09:55)
DX: N84.0 Polyp of corpus uteri (principal); N93.9 Abnormal uterine and vaginal bleeding, unspecified; E78.5 Hyperlipidemia, unspecified; Z87.891 Personal history of nicotine dependence; Z79.899 Other long term (current) drug therapy
CPT/HCPCS: 58563; 81025; 85027; 88305; J7120; J2405